=== PATIENT | male | born 1955 | race Caucasian/White ===

== ENCOUNTER → 2024-11-07 09:04 | Outpatient (CLI) | payer MEDICARE, SELFPAY ==
[2024-11-07 10:36] LABS: Influenza A - CEPHEID Flu A POSITIVE (NEGATIVE); Influenza B - CEPHEID Flu B NEGATIVE (NEGATIVE); Respiratory Syncytial Virus Negative (Negative)
[2024-11-07 10:37] LABS: COVID-19 CEPHEID 4-PLEX PCR Negative (Negative)
== END ==
PROVIDERS: Visit Provider Registered Nurse
DX: R05.1 Acute cough (principal); R50.9 Fever, unspecified
CPT/HCPCS: 0241U

== ENCOUNTER → 2025-08-24 16:45 | Outpatient (ROUT) | payer MEDICARE, SELFPAY | LOC: LAB 16:45 | PROVIDERS: Visit Provider Registered Nurse | DX: L03.90 Cellulitis, unspecified (principal); L72.0 Epidermal cyst; Z79.899 Other long term (current) drug therapy | CPT/HCPCS: 87070; 87075; 87205 ==